=== PATIENT | female | born 1995 | race Asian ===

== ENCOUNTER 2018-08-05 01:42 | Emergency (ER) | payer SELFPAY ==
[~2018-08-05] VITALS: Ht 166.4 cm; Wt 97.6 kg
[2018-08-05 01:49] VITALS: BP 158/89; RESP 20; Ht 166.4 cm; Wt 97.6 kg
[2018-08-05 06:35] VITALS: PULSE 76
[2018-08-05] MEDS ORDERED: KETOROLAC 60 MG INJ IM STA (06:45)
[2018-08-05] MEDS ORDERED: NAPR-985 PO (07:08)
--- NOTE | 2018-08-05 07:15 | ERD ---
ER Documentation Chief Complaint Chief Complaint R marr/elbow pain fr getting caught in somebody's [email or web address],took no meds HPI History of Present Illness: 23-year-old female with no past medical history coming in today with complaint of fall that occurred at work yesterday at approximately 1630. Weighing approximately 200 pounds fell on her at work during inpatient transfer patient reports that she is having left marr pain, right elbow pain, left shoulder pain. At home pharmacological/nonpharmacological treatment for symptoms: Denies patient describes a mechanical fall in which the patient Denies social concerns; Denies recent foreign travel ROS All systems reviewed and are negative except as per history of present illness. Medications Home Meds Active Scripts Naproxen* (Naprosyn*) 500 Mg Tablet, 500 MG PO BID PRN for PAIN AND/OR INFLAMMATION, #30 TAB Prov:CHRISS RODRIGUEZ NP 08/05/18 Allergies Allergies: Coded Allergies: No Known Allergy (Unverified , 08/05/18) PMhx/Soc Medical and Surgical Hx: pt denies Medical Hx, pt denies Surgical Hx Hx Alcohol Use: No Hx Substance Use: No Hx Tobacco Use: No Smoking Status: Never smoker FmHx Family History: coronary disease Physical Exam Vitals Vital Signs Date Temp Pulse Resp B/P (MAP) Pulse Ox O2 O2 Flow FiO2 Time Delivery Rate 08/05/18 98.6 76 18 125/76 98 Room Air 06:35 (92) 08/05/18 98.6 104 20 158/89 96 01:49 (112) Physical Exam Const: No acute distress Head: Atraumatic Eyes: Normal Conjunctiva ENT: Normal External Ears, Nose and Mouth. Neck: Full range of motion. No meningismus. Resp: Clear to auscultation bilaterally Cardio: Regular rate and rhythm, no murmurs Abd: Soft, non tender, non distended. Normal bowel sounds Skin: No petechiae or rashes Back: No midline or flank tenderness Ext: No cyanosis, or edema. tenderness to palpation over left shoulder, full range of motion. Tenderness to palpation over left marr, no ecchymosis, no hematoma. Patient neurovascularly intact distally. Neur: Awake and alert Psych: Normal Mood and Affect Results 24 hrs Laboratory Tests Test 08/05/18 06:54 POC Beta HCG, Qualitative NEGATIVE Current Medications Medications Dose Sig/Maty Start Time Status Last (Trade) Ordered Route PRN Stop Time Admin Dose Reason Admin Ketorolac 60 mg ONCE STAT 08/05/18 DC 08/05/18 Tromethamine IM 06:45 07:05 (Toradol) 08/05/18 06:46 Procedures/MDM ED course includes a thorough examination and history. Medications: Ketorolac ketorolac Imaging: -- Labs: Urine Low suspicion for life-threatening medical emergency. Low suspicion for orthopedic emergency requires hospitalization or immediate surgical intervention. Low suspicion for neurological emergency, patient denies head injury or loss of consciousness. Otherwise healthy patient presenting with constellation of symptoms likely representing uncomplicated contusion secondary to fall as characterized by history, physical exam findings, lab findings. Urine negative No respiratory distress, otherwise relatively well appearing and nontoxic. Patient walking without difficulty. No grimacing noted. Options answered. Will give 1 week work restriction without heavy lifting due to left shoulder p ain. Patient educated on diagnoses, prescriptions, follow-up care, return precautions. Strict return precautions given for worsening condition; questions answered discharge. Disposition for discharge with followup in 2 days with PCP/clinic. Departure Diagnosis: Primary Impression: Fall Encounter type: initial encounter Qualified Codes: W19.XXXA - Unspecified fall, initial encounter Additional Impressions: Contusion Encounter type: initial encounter Contusion area: lower leg Laterality: left Qualified Codes: S80.12XA - Contusion of left lower leg, initial encounter Shoulder pain, left Chronicity: acute Qualified Codes: M25.512 - Pain in left shoulder Condition: Stable Patient Instructions: Contusion, Lower Extremity, Shoulder Contusion Referrals: [facility] YOU HAVE RECEIVED A MEDICAL SCREENING EXAM AND THE RESULTS INDICATE THAT YOU DO NOT HAVE A CONDITION THAT REQUIRES URGENT TREATMENT IN THE EMERGENCY DEPARTMENT. FURTHER EVALUATION AND TREATMENT OF YOUR CONDITION CAN WAIT UNTIL YOU ARE SEEN IN YOUR DOCTORS OFFICE WITHIN THE NEXT 1-2 DAYS. IT IS YOUR RESPONSIBILITY TO MAKE AN APPOINTMENT FOR FOLOW-UP CARE. IF YOU HAVE A PRIMARY DOCTOR --you should call your primary doctor and schedule an appointment IF YOU DO NOT HAVE A PRIMARY DOCTOR YOU CAN CALL OUR PHYSICIAN REFERRAL HOTLINE AT IF YOU CAN NOT AFFORD TO SEE A PHYSICIAN YOU CAN CHOSE FROM THE FOLLOWING [facility] [address] [facility]. [facility] [address] [facility] [facility] [address] [facility] [address] [facility] [address] [facility]. [facility]. [address] [facility]. [facility] YOU HAVE RECEIVED A MEDICAL SCREENING EXAM AND THE RESULTS INDICATE THAT YOU DO NOT HAVE A CONDITION THAT REQUIRES URGENT TREATMENT IN THE EMERGENCY DEPARTMENT. FURTHER EVALUATION AND TREATMENT OF YOUR CONDITION CAN WAIT UNTIL YOU ARE SEEN IN YOUR DOCTORS OFFICE WITHIN THE NEXT 1-2 DAYS. IT IS YOUR RESPONSIBILITY TO MAKE AN APPOINTMENT FOR FOLOW-UP CARE. IF YOU HAVE A PRIMARY DOCTOR --you should call your primary doctor and schedule and appointment IF YOU DO NOT HAVE A PRIMARY DOCTOR YOU CAN CALL OUR PHYSICIAN REFERRAL HOTLINE AT . IF YOU CAN NOT AFFORD TO SEE A PHYSICIAN YOU CAN CHOSE FROM THE FOLLOWING [facility] INSTITUTIONS: [facility] [address] [place] [address] [facility] [address] [place] [address] [facility] + [facility] [address] [place] [address] Additional Instructions: Thank you very much for allowing us to participate in your care. Your health and safety is our top priority at [facility]. It is important to read all discharge instructions and education provided in your discharge packet. Call your primary care doctor TOMORROW for an appointment during the next 2-4 days and bring all the information and medications prescribed. Have prescriptions filled and follow precisely the directions on the label. -Naproxen is a anti-inflammatory/pain medication; take this medication daily as prescribed for the next week to help with swelling/inflammation/pain. If the symptoms get worse and your provider is unavailable, return to the Emergency Department immediately. CHRISS RODRIGUEZ NP Aug 05, 2018 07:15
== END 2018-08-05 07:47 | disposition home or self-care (01) ==
LOC: FTE 01:42
DX: S80.12XA Contusion of left lower leg, initial encounter (principal); W20.8XXA Other cause of strike by thrown, projected or falling object, initial encounter; Y92.89 Other specified places as the place of occurrence of the external cause
CPT/HCPCS: 81025; J1885; 96372